=== PATIENT | female | born 1985 | race Caucasian/White ===

== ENCOUNTER 2016-06-28 10:25 | Outpatient (CLI) | payer BC, MEDICAID | END 2016-06-28 10:26 | DX: G40.409 Other generalized epilepsy and epileptic syndromes, not intractable, without status epilepticus (principal); Z79.899 Other long term (current) drug therapy ==

== ENCOUNTER 2016-10-25 06:38 | Outpatient (CLI) | payer OTHER, MEDICAID ==
[2016-10-25 12:47] LABS: BASOPHILS # (AUTO) 0.1 10^3/uL (0.0-0.1); BASOPHILS % (AUTO) 1.1 %; EOSINOPHILS # (AUTO) 0.4 10^3/uL (0.0-0.7); EOSINOPHILS % (AUTO) 6.1 %; HCT - HEMATOCRIT 36.8 % (37.0-47.0); HGB - HEMOGLOBIN 12.3 g/dL (12.0-16.0); LYMPHOCYTES # (AUTO) 1.2 10^3/uL (1.5-3.5); LYMPHOCYTES % (AUTO) 18.7 %; MEAN CORPUSCULAR HEMOGLOBIN 29.8 pg (27.0-31.0); MEAN CORPUSCULAR HGB CONC 33.5 g/dL (32.0-36.0); MEAN CORPUSCULAR VOLUME 88.9 fL (81.0-99.0); MEAN PLATELET VOLUME 9.5 fL (7.9-10.8); MONOCYTES # (AUTO) 0.4 10^3/uL (0.0-1.0); MONOCYTES % (AUTO) 5.8 %; NEUTROPHILS # (AUTO) 4.3 10^3/uL (1.5-6.6); NEUTROPHILS % (AUTO) 68.3 %; RED BLOOD COUNT 4.14 10^6/uL (4.20-5.40); RED CELL DISTRIBUTION WIDTH 13.2 % (12.0-15.0); UNCORRECTED WHITE BLOOD COUNT 6.3 x10^3/uL; WHITE BLOOD COUNT 6.3 x10^3/uL (4.8-10.8)
[2016-10-25 13:13] LABS: ALBUMIN/GLOBULIN RATIO 1.4 (1.0-2.2); BILIRUBIN,TOTAL 0.6 mg/dL (0.2-1.0); BUN - BLOOD UREA NITROGEN 14 mg/dL (6-20); CALCIUM 9.5 mg/dL (8.5-10.3); CARBON DIOXIDE - CO2 27 mmol/L (21-32); CHLORIDE 106 mmol/L (101-111); CREATININE 0.9 mg/dL (0.4-1.0); GFR - MDRD 74 (>89); GLUCOSE 78 mg/dL (70-100); POTASSIUM 4.2 mmol/L (3.5-5.0); SODIUM 139 mmol/L (135-145); TOTAL PROTEIN 7.6 g/dL (6.7-8.2)
== END 2016-10-25 06:39 | disposition home or self-care (01) ==
LOC: LAB.WCP 06:38
PROVIDERS: ATTEND Physician Assistant Medical
DX: Z79.899 Other long term (current) drug therapy (principal); G40.309 Generalized idiopathic epilepsy and epileptic syndromes, not intractable, without status epilepticus; E03.9 Hypothyroidism, unspecified
CPT/HCPCS: 36415; 80053; 80178; 84443; 85025

== ENCOUNTER 2016-12-01 09:47 | Outpatient (CLI) | payer OTHER, MEDICAID | END 2016-12-01 09:48 | disposition home or self-care (01) | LOC: LAB.WCP 09:47 | PROVIDERS: ATTEND Physician Assistant Medical | DX: G40.309 Generalized idiopathic epilepsy and epileptic syndromes, not intractable, without status epilepticus (principal); Z79.899 Other long term (current) drug therapy | CPT/HCPCS: 36415; 80175 ==

== ENCOUNTER 2017-04-26 14:36 | Outpatient (CLI) | payer OTHER, MEDICAID ==
--- NOTE | 2017-04-26 20:49 | MRI Report ---
EXAM: RIGHT FEMUR/THIGH MRI WITHOUT CONTRAST EXAM DATE: 04/26/2017 04:17 PM. CLINICAL HISTORY: Pain in right thigh. COMPARISON: None. TECHNIQUE: Multiplanar, multisequence T1-weighted and fluid-sensitive sequences of the femur/thigh wi thout contrast. Other: None. FINDINGS: Bones: No fractures or subluxations. No marrow edema. No bone lesions. Joint Spaces: Visualized portions of the hip and knee joints are unremarkable on these large field-of -view images. Tendons: The visualized hamstring origins are unremarkable. Musculature: No edema or fatty atrophy. Muscle bundles of the thigh are well developed and show no ev idence for fatty atrophy. No areas of abnormal increased T2 signal. The area of the patient's concern is marked with an MRI marker. This is the midportion of the hamstring musculature. Normal anatomy is noted. Other: The visualized sciatic and femoral nerves are unremarkable. The subcutaneous tissues are unrem arkable. IMPRESSION: No MRI abnormalities in the femur/thigh. [facility] MUSCULOSKELETAL RADIOLOGY SECTION Referring Provider Line: [phone] SITE ID: [id number]
== END 2017-04-26 14:37 | disposition home or self-care (01) ==
LOC: DI 14:36
PROVIDERS: ATTEND Orthopaedic Surgery
DX: M79.651 Pain in right thigh (principal)

== ENCOUNTER 2017-05-22 13:55 | Outpatient (CLI) | payer OTHER, MEDICAID ==
[2017-05-22 19:06] LABS: LITHIUM 0.56 mmol/L
[2017-05-22 19:58] LABS: ALBUMIN 4.9 g/dL (3.2-5.5); ALBUMIN/GLOBULIN RATIO 1.5 (1.0-2.2); ALKALINE PHOSPHATASE 40 IU/L (42-121); ALT ALANINE AMINOTRANSFERASE 16 IU/L (10-60); AST ASPARTATE AMINOTRANSFERASE 21 IU/L (10-42); BILIRUBIN,TOTAL 0.7 mg/dL (0.2-1.0); BUN - BLOOD UREA NITROGEN 10 mg/dL (6-20); CALCIUM 9.2 mg/dL (8.5-10.3); CARBON DIOXIDE - CO2 23 mmol/L (21-32); CHLORIDE 108 mmol/L (101-111); CREATININE 0.9 mg/dL (0.4-1.0); GFR - MDRD 74 (>89); SODIUM 138 mmol/L (135-145); TOTAL PROTEIN 8.2 g/dL (6.7-8.2)
[2017-05-22 19:59] LABS: GLUCOSE 55 mg/dL (70-100)
== END 2017-05-22 13:56 | disposition home or self-care (01) ==
LOC: LAB.WCP 13:55
PROVIDERS: ATTEND Physician Assistant Medical
DX: G40.309 Generalized idiopathic epilepsy and epileptic syndromes, not intractable, without status epilepticus (principal); E03.9 Hypothyroidism, unspecified; Z51.81 Encounter for therapeutic drug level monitoring; Z79.899 Other long term (current) drug therapy
CPT/HCPCS: 36415; 80053; 80175; 80178; 84443

== ENCOUNTER 2017-11-07 10:24 | Outpatient (CLI) | payer OTHER, MEDICAID ==
[2017-11-13 02:36] LABS: B2 GLYCOPROTEIN I IGA AB <9 SAU (< OR = 20); B2 GLYCOPROTEIN I IGG AB <9 SGU (< OR = 20); B2 GLYCOPROTEIN I IGM AB <9 SMU (< OR = 20); CARDIOLIPIN AB IGA <11 APL
== END 2017-11-07 10:25 | disposition home or self-care (01) ==
LOC: LAB 10:24
PROVIDERS: ATTEND Family Medicine
DX: Z82.49 Family history of ischemic heart disease and other diseases of the circulatory system (principal)
CPT/HCPCS: 36415; 81240; 81241; 81599; 85300; 85303; 85613; 85730; 86146; 86147

== ENCOUNTER 2018-01-01 09:40 | Outpatient (CLI) | payer OTHER, MEDICAID ==
[2018-01-01 12:08] LABS: BASOPHILS # (AUTO) 0.1 10^3/uL (0.0-0.1); BASOPHILS % (AUTO) 1.1 %; EOSINOPHILS # (AUTO) 0.3 10^3/uL (0.0-0.7); EOSINOPHILS % (AUTO) 3.9 %; HGB - HEMOGLOBIN 12.9 g/dL (12.0-16.0); LYMPHOCYTES # (AUTO) 1.2 10^3/uL (1.5-3.5); LYMPHOCYTES % (AUTO) 16.5 %; MEAN CORPUSCULAR HEMOGLOBIN 30.1 pg (27.0-31.0); MEAN CORPUSCULAR HGB CONC 34.1 g/dL (32.0-36.0); MEAN CORPUSCULAR VOLUME 88.2 fL (81.0-99.0); MEAN PLATELET VOLUME 9.1 fL (7.9-10.8); MONOCYTES # (AUTO) 0.4 10^3/uL (0.0-1.0); MONOCYTES % (AUTO) 5.9 %; NEUTROPHILS # (AUTO) 5.3 10^3/uL (1.5-6.6); NEUTROPHILS % (AUTO) 72.6 %; PLT - PLATELET COUNT 265 10^3/uL (130-450); RED CELL DISTRIBUTION WIDTH 13.2 % (12.0-15.0); WHITE BLOOD COUNT 7.3 x10^3/uL (4.8-10.8)
[2018-01-01 12:31] LABS: ALBUMIN 4.6 g/dL (3.2-5.5); ALBUMIN/GLOBULIN RATIO 1.4 (1.0-2.2); ALKALINE PHOSPHATASE 41 IU/L (42-121); ALT ALANINE AMINOTRANSFERASE 11 IU/L (10-60); AST ASPARTATE AMINOTRANSFERASE 16 IU/L (10-42); BILIRUBIN,TOTAL 0.8 mg/dL (0.2-1.0); BUN - BLOOD UREA NITROGEN 9 mg/dL (6-20); CALCIUM 9.4 mg/dL (8.5-10.3); CARBON DIOXIDE - CO2 24 mmol/L (21-32); CHLORIDE 108 mmol/L (101-111); GFR - MDRD 65 (>89); GLUCOSE 84 mg/dL (70-100); SODIUM 138 mmol/L (135-145); TOTAL PROTEIN 7.9 g/dL (6.7-8.2)
[2018-01-01 12:42] LABS: THYROID STIMULATING HORMONE 2.65 uIU/mL (0.34-5.60)
[2018-01-01 12:48] LABS: PROLACTIN 9.8 ng/mL
== END 2018-01-01 09:41 ==
LOC: LAB.WCP 09:40
PROVIDERS: ATTEND Family Medicine
DX: F31.9 Bipolar disorder, unspecified (principal); N64.4 Mastodynia; E03.9 Hypothyroidism, unspecified; G40.309 Generalized idiopathic epilepsy and epileptic syndromes, not intractable, without status epilepticus
CPT/HCPCS: 36415; 80053; 80175; 80178; 84146; 84443; 85025

== ENCOUNTER 2018-04-18 08:00 | Outpatient (CLI) | payer OTHER, MEDICAID ==
[2018-04-18 13:51] LABS: CHOL/HDL RATIO 2.8 (<4.4); CHOLESTEROL 167 mg/dL; GLUCOSE,FASTING 82 mg/dL (70-100); HDL CHOLESTEROL 59 mg/dL; LDL CHOLESTEROL,CALCULATED 99 mg/dL; LDL/HDL RATIO 1.7 (<4.4); VLDL CHOLESTEROL 9 mg/dL
[2018-04-18 13:54] LABS: T4 (THYROXINE) 8.8 ug/dL (6.09-12.23)
[2018-04-18 13:58] LABS: THYROID STIMULATING HORMONE 2.29 uIU/mL (0.34-5.60)
== END 2018-04-18 23:59 | disposition home or self-care (01) ==
LOC: LAB.WCP 08:00
PROVIDERS: ATTEND Registered Nurse
DX: Z00.00 Encounter for general adult medical examination without abnormal findings (principal)
CPT/HCPCS: 36415; 80061; 82947; 83721; 84436; 84443

== ENCOUNTER 2018-05-01 15:02 | Outpatient (CLI) | payer OTHER, MEDICAID ==
--- NOTE | 2018-05-02 14:04 | Ultrasound Report ---
Reason: THYROMEGALY,VAGINAL AGENESIS Procedure Date: 05/01/2018 Accession Number: [id number] / [id number] Procedure: US - Head or Neck Soft Tissue CPT Code: FULL RESULT: EXAM: THYROID ULTRASOUND EXAM DATE: 05/01/2018 03:16 PM. CLINICAL HISTORY: Thyromegaly, vaginal agenesis. COMPARISON: RIBS W/PA CHEST RT 09/04/2015 12:30 PM. TECHNIQUE: Real time sonographic imaging of the thyroid was performed by the fishing boat captain. Multiple quality control representative static images were saved for review. FINDINGS: THYROID GLAND: Right Lobe: 2.1 x 1.8 x 4.6 cm cm, volume 8.96 cc. Diffuse heterogeneous background echotexture without discrete mass/nodule. Right Lobe Nodules: None. Left Lobe: 2.2 x 1.6 x 4.6 cm cm, volume 8.35 cc. Diffuse heterogeneous background echotexture. Left Lobe Nodules: 5 mm oval nodule upper outer left thyroid with increased echotexture and shadowing favoring partially rim calcified nodule. Isthmus: 0.51 cm AP. Isthmic Nodules: None. LYMPH NODES: No adenopathy demonstrated in the central or lateral compartment. OTHER: None. IMPRESSION: 1. Diffuse heterogeneous enlargement of the thyroid gland of uncertain etiology. 2. Hyperechoic, likely partially rim calcified 5 mm nodule in the left thyroid lobe. Given pattern of calcification, this nodule is between intermediate and high suspicion pattern. As finding is less than a centimeter in size, recommend surveillance imaging in 6 months to assess stability. Management recommendations are based on 2015 [place] [employer] Management Guidelines for Adult Patients with Thyroid Nodules and Differentiated Thyroid Cancer. [facility]
== END 2018-05-01 15:03 | disposition home or self-care (01) ==
LOC: DI 15:02
PROVIDERS: ATTEND Registered Nurse
DX: E01.0 Iodine-deficiency related diffuse (endemic) goiter (principal); Q52.0 Congenital absence of vagina
CPT/HCPCS: 76536

== ENCOUNTER 2018-05-30 09:43 | Outpatient (CLI) | payer OTHER, MEDICAID ==
[2018-05-30] MEDS ORDERED: GADOBUTROL 7.5 MMOL/7.5 ML VIAL ONE (11:24)
[2018-05-30] MEDS ORDERED: GADOBUTROL 7.5 MMOL/7.5 ML VIAL IVP ONE (11:55)
--- NOTE | 2018-05-30 14:57 | MRI Report ---
Reason: VAGINAL AGENESIS Procedure Date: 05/30/2018 Accession Number: [id number] / [id number] Procedure: MRI - Pelvis W/WO CPT Code: FULL RESULT: EXAM: MR PELVIS WITH AND WITHOUT CONTRAST (MR FEMALE PELVIS) EXAM DATE: 05/30/2018 12:08 PM. CLINICAL HISTORY: VAGINAL AGENESIS. COMPARISON: None. TECHNIQUE: Multiplanar breath-hold T1, T2 obtained through the pelvis on an MR scanner. Images obtained before and after administration of 7.5 mL Gadavist intravenous contrast. FINDINGS: Reproductive Organs: Uterus: The uterus is anteverted and measures 7.1 x 3.2 x 4.3 cm with volume 51 cc. The endometrial stripe measures 2 mm. Normal 7 mm junctional zone thickness. There are no uterine masses. Vaginal canal appears collapsed. Right Ovary: The right ovary measures 4.6 x 3.6 x 2.5 cm with volume 22 cc. Right ovary contains a simple cyst measuring 3.2 x 3.4 x 2.0 cm. No thick septations or mural nodules. Left Ovary: The left ovary measures 2.8 x 1.6 x 2.6 cm with volume 6.1 cc. The left ovary appears normal. Bowel: The visualized portions of the small bowel, colon, and rectum appear normal. Bladder: The urinary bladder appears normal. Other: Small amount of physiologic free fluid in cul-de-sac. IMPRESSION: 1. A 3.4 cm simple right ovarian cyst. Ovaries are otherwise unremarkable. 2. Normal uterus and cervix. [facility]
== END 2018-05-30 09:44 | disposition home or self-care (01) ==
LOC: DI 09:43
PROVIDERS: ATTEND Registered Nurse
DX: Q52.0 Congenital absence of vagina (principal); N83.291 Other ovarian cyst, right side
CPT/HCPCS: 72197; A9585

== ENCOUNTER 2018-09-03 12:56 | Outpatient (CLI) | payer OTHER, MEDICAID ==
[2018-09-03 13:15] LABS: BASOPHILS # (AUTO) 0.1 10^3/uL (0.0-0.1); BASOPHILS % (AUTO) 1.2 %; EOSINOPHILS # (AUTO) 0.4 10^3/uL (0.0-0.7); EOSINOPHILS % (AUTO) 5.6 %; HGB - HEMOGLOBIN 13.3 g/dL (12.0-16.0); LYMPHOCYTES # (AUTO) 1.6 10^3/uL (1.5-3.5); LYMPHOCYTES % (AUTO) 20.4 %; MEAN CORPUSCULAR HEMOGLOBIN 29.1 pg (27.0-31.0); MEAN CORPUSCULAR HGB CONC 33.1 g/dL (32.0-36.0); MEAN PLATELET VOLUME 8.3 fL (7.9-10.8); MONOCYTES # (AUTO) 0.5 10^3/uL (0.0-1.0); MONOCYTES % (AUTO) 5.8 %; NEUTROPHILS # (AUTO) 5.3 10^3/uL (1.5-6.6); PLT - PLATELET COUNT 308 10^3/uL (130-450); RED BLOOD COUNT 4.56 10^6/uL (4.20-5.40); RED CELL DISTRIBUTION WIDTH 13.4 % (12.0-15.0)
[2018-09-03 13:32] LABS: ALBUMIN 4.6 g/dL (3.2-5.5); ALBUMIN/GLOBULIN RATIO 1.4 (1.0-2.2); BILIRUBIN,TOTAL 0.6 mg/dL (0.2-1.0); CALCIUM 9.5 mg/dL (8.5-10.3); CREATININE 0.9 mg/dL (0.4-1.0); TOTAL PROTEIN 7.9 g/dL (6.7-8.2)
== END 2018-09-03 12:57 | disposition home or self-care (01) ==
LOC: LAB 12:56
PROVIDERS: ATTEND Obstetrics & Gynecology
DX: Z01.812 Encounter for preprocedural laboratory examination (principal); N94.4 Primary dysmenorrhea; N92.5 Other specified irregular menstruation
CPT/HCPCS: 36415; 80053; 85025; 86850; 86900; 86901; 93005

== ENCOUNTER 2018-09-04 07:55 | Day surgery (SDC) | payer OTHER, MEDICAID ==
[2018-09-04] MEDS ORDERED: ceFAZolin 2 GM/50 ML 2 GM/50 ML BAG IV ONE (08:07)
[2018-09-04] MEDS ORDERED: LACTATED RINGERS 1,000 ML IV ONE ×3 (08:26→13:10)
--- NOTE | 2018-09-04 09:47 | ANESTHESIA ---
Pre-Anesthesia VS, & Labs - Diagnosis menorrhagia and dysmenorrhea - Procedure total laparoscopic hysterectomy Vital Signs: Temp Pulse Resp BP Pulse Ox 36.8 C 73 18 115/71 100 09/04/18 08:00 09/04/18 08:00 09/04/18 08:00 09/04/18 08:00 09/04/18 08:00 Height 5 ft 6 in Weight (kg) 65.1 kg Body Mass Index 21.1 - NPO >8 hours - Is Patient ?: Waiver signed - Lab Results Lab results reviewed: Yes Home Medications and Allergies Home Medications: Ambulatory Orders Cholecalciferol (Vitamin D3) [Vitamin D3] 2,000 unit PO DAILY 08/26/18 Naproxen Sodium [Aleve] 220 mg PO BID PRN 08/26/18 Levothyroxine [Synthroid] 75 mcg PO QDAC 03/16/13 [place] Carbonate [[place] Carbonate ER] 1,200 mg PO QPM 03/16/13 lamoTRIgine [Lamictal Xr] 150 mg PO DAILY 03/16/13 traZODone [Desyrel] 50 mg PO HS 03/16/13 Cholecalciferol (Vitamin D3) [Vitamin D3] 2,000 unit PO DAILY 08/26/18 Naproxen Sodium [Aleve] 220 mg PO BID PRN 08/26/18 Allergies/Adverse Reactions: Allergies Allergy/AdvReac Type Severity Reaction Status Date / Time Pertussis Vaccines Allergy severe Verified 08/26/18 14:16 diarrhea pseudoephedrine HCl * Allergy Dizziness Verified 08/26/18 14:16 [facility] Anes History & Medical History - Anesthetic History Anesthesia Complications: reports: Post-Operative Nausea/Vomiting - Medical History Cardiovascular: reports: None Pulmonary: reports: Asthma, Other Gastrointestinal: reports: None Urinary: reports: None Musculoskeletal: reports: Chronic back pain Endocrine/Autoimmune: reports: None Skin: reports: None Smoking Status: Never smoker - Surgical History Orthopedic: Other (foot surgery) Exam General: Alert Dental: WNL Mallampati classification: II Thyromental Distance: greater than 6 cm Plan Anesthesia Type: General Consent for Procedure(s) Verified and Reviewed: Yes Code Status: Attempt Resuscitation ASA classification: 2-Mild systemic disease Is this case an emergency?: No
[2018-09-04] MEDS ORDERED: BUPIVACAINE 0.25%-EPI 1:200000 PF 30 ML VIAL ONE (11:03)
[2018-09-04] MEDS ORDERED: METHYLENE BLUE 0.5% 50 MG/10 ML AMPULE ONE (11:03)
[2018-09-04 11:11] LABS: HCG,QUALITATIVE BLOOD NEGATIVE
[2018-09-04] MEDS ORDERED: BUPIVACAINE 0.25%-EPI 1:200000 PF 30 ML VIAL SUBQ ONE ×3 (12:17→12:23)
[2018-09-04] MEDS ORDERED: LORazepam 2 MG/ML VIAL IVP PRN (15:21)
[2018-09-04] MEDS ORDERED: HYDROmorphone 0.5 MG/0.5 ML SYRINGE IVP PRN (15:21)
--- NOTE | 2018-09-04 15:25 | OPERATIVE REPORT ---
Operative Report - General Procedure Date: 09/04/18 Planned Procedure: TLH BS possible Open. Pre-Op Diagnosis: Dysmenorrhea, Menorrhagia Procedure Performed: TLH BS, cysto Post Op Diagnosis: Same - Procedure Note Primary Surgeon: Orion Castro MD Anesthesia Provider: Jose Fenton CRNA Anesthesia Technique: General ET tube Pathology: Uterus with Tubes IV Fluids (mL): 1,200 Estimated Blood Loss (mL): 100 Urine Output (mL): 450 Complications: None
[2018-09-04] MEDS: ONDANSETRON 4 MG/2 ML VIAL IVP PRN ×2 (16:15→23:15)
[2018-09-04] MEDS ORDERED: ONDANSETRON 4 MG/2 ML VIAL ONE (16:20)
[2018-09-04] MEDS ORDERED: LORazepam 2 MG/ML VIAL ONE (16:29)
[2018-09-04] MEDS: oxyCODONE 5 MG TABLET PO PRN (17:28)
[2018-09-04] MEDS: ACETAMINOPHEN 500 MG TABLET PO SCH (18:27)
[2018-09-04] MEDS ORDERED: ALBUTEROL NEB 2.5 MG/3 ML INH PRN (18:41)
[2018-09-04] MEDS: DOCUSATE SODIUM 100 MG CAPSULE PO SCH (21:00)
[2018-09-04] MEDS ORDERED: lamoTRIgine 100 MG TABLET PO SCH (21:00)
[2018-09-04] MEDS ORDERED: traZODone 50 MG TABLET PO SCH (21:00)
[2018-09-04] MEDS ORDERED: LITHIUM ER 300 MG TABLET PO SCH (21:00)
--- NOTE | 2018-09-04 21:22 | OPERATIVE REPORT ---
DATE OF SERVICE: 09/04/2018 Physician: Orion Castro MD PREOPERATIVE DIAGNOSES 1. Menorrhagia. 2. Dysmenorrhea. POSTOPERATIVE DIAGNOSES 1. Menorrhagia. 2. Dysmenorrhea. PROCEDURE DONE: Total laparoscopic hysterectomy with bilateral salpingectomy and cystoscopy. SURGEON: Orion Castro MD ANESTHESIA: General via endotracheal tube with Jose Fenton CRNA. ESTIMATED BLOOD LOSS: 100 mL. IV FLUIDS: 1200 mL. URINE OUTPUT: 450 mL. FINDINGS: Upon entering the abdominal cavity, the pelvis was free of any adhesions or lesions. Tube s and ovaries appeared to be free of disease. The gallbladder as well as appendix looked normal. Va ginal vault was very stenotic. The hymenal ring was very tight, barely able to enter a single digit. Cervix appeared to be normal. DESCRIPTION OF PROCEDURE: Following adequate endotracheal anesthesia, patient was placed in dorsal l ithotomy position. She was placed in Michael stirrups. At this point, she was prepped and draped in t he usual fashion. The pelvic examination revealed a very small cervix, so for this reason, extra ins truments were obtained. A timeout was performed, in which concerns were voiced and addressed, and th e possibility of needing to proceed to open was reviewed. At this point, a small speculum was placed in the vagina. The cervix was visualized, grasped with a single-tooth tenaculum anteriorly. At this point, it was felt that a larger pediatric speculum could be used, and so one was. Upon assessing the diameter and the aperture of the hymenal ring, it was d ecided that placing a medium VCare could be done. This was done with some dexterity, and the VCare w as placed into the fornices of the vagina. At this point, the trading floor operator's gloves were changed, and following local anesthesia with 0.25% Marcaine with epinephrine in the subumbilical area, an incision with a #11 blade was utilized. A trocar was placed on a single pass, and the pelvis was inspected. There was no evidence of any injury at the si te of insertion. Both left and right lower quadrant incisions were placed, utilizing 0.25% Marcaine with epinephrine, #11 blade, and then 5 mm ports. At this point, utilizing LigaSure, the tubes were bilaterally cauterized and divided. This brought all the way to the cornua. Then, utilizing the Lig aSure on the left-hand side, the round ligament as well as utero-ovarian ligament were cauterized and transected. A division between the anterior and posterior leaf was utilized, and then the bladder f lap was developed over the lower uterine segment. The right-hand side was treated identically. The tube was grasped, the mesosalpinx was clamped, caut erized, and divided, utilizing the LigaSure, all the way to the cornua. Then, the utero-ovarian liga ment was doubly cauterized and transected, as well as the round ligament. The anterior leaf of the b road ligament was opened, and this was brought down to the bladder flap. The cup from the VCare was easily palpated. Then, the uterosacral ligaments were clamped, cauterized, and transected. At this point, a Harmonic scalpel was used to enter the vagina anteriorly. Care was taken to try to stay as high in the vagina as possible. The incision was carried along the groove of the VCare cup o n the left-hand side. There was difficulty with bleeding on the uterosacral ligament. This was luis lluvia with electrocautery from the LigaSure. Good hemostasis was obtained. Then, the remainder of the cervix was amputated from the apex of the vagina. The uterus was brought down into the vagina and c reated a good seal. At this point, the tubes were both removed, as they were in the wound from the a pex of the vagina. Following removal of the tubes, it was decided to utilize an Endo Stitch with 0 V-Loc suture. The [facility] lower quadrant incision was extended to receive a centimeter port, and this was done without diff iculty. The Endo Stitch was used to close the apex of the vagina. This was done without difficulty. At this point, there was noted to be a gap in the midline on the right-hand side, so additional sut ure of V-Loc was placed, starting in the midline, working to the right. Good closure was noted, at t his time. At this point, the pelvis was inspected. There was no evidence of any bleeding. The pelvis was irri gated. The ports were removed under direct visualization. A Clarence was utilized to close t he right lower quadrant incision, in that it was a 1 cm incision. This was done with 0 Vicryl. This was noted to have a good tight closure. The incisions were closed using 4-0 Monocryl. Following th is, a cystoscopy was performed, in which there was evidence of good urine flow from both ureters. The patient tolerated the procedure well and was taken to recovery in stable condition. Sponge and n eedle counts were correct. TD: 09/04/2018 15:45
[2018-09-04] MEDS ORDERED: SODIUM CHLORIDE FLUSH 0.9% 10 ML SYRINGE ONE (23:20)
[2018-09-05] MEDS: ACETAMINOPHEN 500 MG TABLET PO SCH ×2 (00:17→07:57)
[2018-09-05 07:31] VITALS: BP 108/74
[2018-09-05] MEDS: DOCUSATE SODIUM 100 MG CAPSULE PO SCH (07:57)
[2018-09-05] MEDS ORDERED: KETOROLAC 30 MG/ML VIAL IVP PRN (08:25)
[2018-09-05] MEDS ORDERED: ONDANSETRON ODT 4 MG TABLET TL PRN (08:26)
[2018-09-05] MEDS: oxyCODONE 5 MG TABLET PO PRN (08:26)
[2018-09-05] MEDS ORDERED: oxyCODONE 5 MG TABLET PO PRN (08:31)
--- NOTE | 2018-09-05 08:36 | PROVIDER PROGRESS NOTE ---
Subjective - General Procedure Date: 09/04/18 Post Op Days: 1 Procedure Performed: TLH BS Cysto - Review of Systems Wound/Incisions: positive: Healing well Gastrointestinal: positive: Nausea, Vomiting (4 timeslast PM) Objective - Patient Data Reviewed Vital Signs: Yes Vital Signs: Vital Signs x48h Temp Pulse Resp BP Pulse Ox 09/05/18 07:25 37.3 C 82 14 108/74 97 09/05/18 05:51 37.1 C 90 18 97 09/05/18 04:00 37.1 C 90 18 126/75 97 Weight: Weight 09/03/18 09/04/18 09/05/18 23:59 23:59 23:59 Weight (kg) 65.1 kg Intake & Output: Intake and Output Totals x24h 09/03/18 09/04/18 09/05/18 23:59 23:59 23:59 Intake Total 2750 2900 Output Total 800 Balance 1950 2900 - Lab Results Other Lab Results: Lab Results x24hrs 09/04/18 09/04/18 Range/Units 16:50 10:46 Serum HCG, Qual NEGATIVE Nasal Screen MRSA (PCR) NEGATIVE (NEGATIVE) - Current Medications Current Medications: Current Medications Generic Name Dose Route Start Last Admin Trade Name Freq PRN Reason Stop Dose Admin Acetaminophen 1,000 mg 09/04/18 16:00 09/05/18 07:57 Tylenol PO 1,000 mg Q8H LUZ Administration Docusate Sodium 100 mg 09/04/18 21:00 09/05/18 07:57 Colace 100mg Capsule PO 100 mg BID LUZ Administration Lamotrigine 150 mg 09/04/18 21:00 09/04/18 21:00 Lamictal PO 150 mg QPM LUZ Administration [place] Carbonate 1,200 mg 09/04/18 21:00 09/04/18 21:18 Lithobid PO 1,200 mg QPM LUZ Administration Ondansetron HCl 4 mg 09/04/18 15:21 09/04/18 16:15 Zofran Inj IVP 4 mg Q6HR PRN Administration Nausea / Vomiting Oxycodone HCl 10 mg 09/04/18 15:21 09/05/18 08:26 Roxicodone PO 10 mg Q4HR PRN Administration PAIN Trazodone HCl 50 mg 09/04/18 21:00 09/04/18 21:00 Desyrel PO 50 mg QPM LUZ Administration - Physical Exam Wound/Incisions: positive: Healing well General Appearance: positive: Mild distress (Pt notes Pain 3/10 when not moving. with motion very sore) Cardiovascular: positive: Regular rate & rhythm, No murmur, No gallop Abdomen: positive: Nml bowel sounds, No distention, Tenderness (tender over the lower pelvis) Extremities: negative: Calf tenderness, Peggy's sign/cords Impression/Plan - Problem List Problem List: Patient did'nt qet any thing for pain last PM except for tylenol. 4 episode of vomiting. Low grade temp suspect atalectisis. start Pain medication CBC
[2018-09-05 08:49] LABS: BASOPHILS # (AUTO) 0.1 10^3/uL (0.0-0.1); BASOPHILS % (AUTO) 0.8 %; EOSINOPHILS # (AUTO) 0.1 10^3/uL (0.0-0.7); EOSINOPHILS % (AUTO) 0.9 %; HGB - HEMOGLOBIN 11.8 g/dL (12.0-16.0); LYMPHOCYTES % (AUTO) 7.9 %; MEAN CORPUSCULAR HEMOGLOBIN 29.2 pg (27.0-31.0); MEAN CORPUSCULAR HGB CONC 32.8 g/dL (32.0-36.0); MEAN PLATELET VOLUME 8.3 fL (7.9-10.8); MONOCYTES # (AUTO) 0.7 10^3/uL (0.0-1.0); MONOCYTES % (AUTO) 6.1 %; NEUTROPHILS # (AUTO) 10.4 10^3/uL (1.5-6.6); NEUTROPHILS % (AUTO) 84.3 %; PLT - PLATELET COUNT 257 10^3/uL (130-450); RED BLOOD COUNT 4.05 10^6/uL (4.20-5.40); RED CELL DISTRIBUTION WIDTH 13.2 % (12.0-15.0); WHITE BLOOD COUNT 12.3 x10^3/uL (4.8-10.8)
--- NOTE | 2018-09-05 12:30 | PROVIDER PROGRESS NOTE ---
Subjective - General Procedure Date: 09/04/18 Post Op Days: 1 Procedure Performed: TL BS Cysto - Review of Systems Wound/Incisions: positive: Healing well General: positive: No symptoms (Pain 2/10 moving easly.) Gastrointestinal: positive: Nausea, Vomiting (4 timeslast PM) Objective - Patient Data Vital Signs: Vital Signs x48h Temp Pulse Resp BP Pulse Ox 09/05/18 09:26 98.7 C H 09/05/18 07:25 37.3 C 82 14 108/74 97 09/05/18 05:51 37.1 C 90 18 97 Weight: Weight 09/03/18 09/04/18 09/05/18 23:59 23:59 23:59 Weight (kg) 65.1 kg Intake & Output: Intake and Output Totals x24h 09/03/18 09/04/18 09/05/18 23:59 23:59 23:59 Intake Total 2750 3250 Output Total 800 Balance 1950 3250 - Lab Results Lab Results: 09/05/18 08:46 Other Lab Results: Lab Results x24hrs 09/05/18 09/04/18 Range/Units 08:46 16:50 WBC 12.3 H (4.8-10.8) x10^3/uL RBC 4.05 L (4.20-5.40) 10^6/uL Hgb 11.8 L (12.0-16.0) g/dL Hct 36.1 L (37.0-47.0) % MCV 89.0 (81.0-99.0) fL MCH 29.2 (27.0-31.0) pg MCHC 32.8 (32.0-36.0) g/dL RDW 13.2 (12.0-15.0) % Plt Count 257 (130-450) 10^3/uL MPV 8.3 (7.9-10.8) fL Neut # (Auto) 10.4 H (1.5-6.6) 10^3/uL Lymph # (Auto) 1.0 L (1.5-3.5) 10^3/uL [place] # (Auto) 0.7 (0.0-1.0) 10^3/uL Eos # (Auto) 0.1 (0.0-0.7) 10^3/uL Baso # (Auto) 0.1 (0.0-0.1) 10^3/uL Absolute Nucleated RBC 0.00 x10^3/uL Nucleated RBC % 0.0 /100WBC Nasal Screen MRSA (PCR) NEGATIVE (NEGATIVE) - Current Medications Current Medications: Current Medications Generic Name Dose Route Start Last Admin Trade Name Freq PRN Reason Stop Dose Admin Acetaminophen 1,000 mg 09/04/18 16:00 09/05/18 07:57 Tylenol PO 1,000 mg Q8H LUZ Administration Docusate Sodium 100 mg 09/04/18 21:00 09/05/18 07:57 Colace 100mg Capsule PO 100 mg BID LUZ Administration Lamotrigine 150 mg 09/04/18 21:00 09/04/18 21:00 Lamictal PO 150 mg QPM LUZ Administration [place] Carbonate 1,200 mg 09/04/18 21:00 09/04/18 21:18 Lithobid PO 1,200 mg QPM LUZ Administration Ondansetron HCl 4 mg 09/04/18 15:21 09/04/18 16:15 Zofran Inj IVP 4 mg Q6HR PRN Administration Nausea / Vomiting Oxycodone HCl 5 mg 09/05/18 08:31 09/05/18 12:16 Roxicodone PO 5 mg Q4HR PRN Administration PAIN Trazodone HCl 50 mg 09/04/18 21:00 09/04/18 21:00 Desyrel PO 50 mg QPM LUZ Administration Impression/Plan - Problem List Problem List: Pt is drastically improved. moving well Send home
== END 2018-09-05 12:50 | disposition home or self-care (01) ==
LOC: SDS 07:55 → ICU 16:03 → SDS 09-05 12:50
PROVIDERS: ATTEND Obstetrics & Gynecology
PROC: 0UT74ZZ Resection of Bilateral Fallopian Tubes, Percutaneous Endoscopic Approach (ICD-10-PCS; 2018-09-04)
PROC: 0TJB8ZZ Inspection of Bladder, Via Natural or Artificial Opening Endoscopic (ICD-10-PCS; 2018-09-04)
PROC: 0UT94ZZ Resection of Uterus, Percutaneous Endoscopic Approach (ICD-10-PCS; principal; 2018-09-04 09:15)
DX: N94.4 Primary dysmenorrhea (principal); N92.0 Excessive and frequent menstruation with regular cycle; E03.9 Hypothyroidism, unspecified; F84.5 Asperger's syndrome; F31.9 Bipolar disorder, unspecified; G47.00 Insomnia, unspecified; J45.909 Unspecified asthma, uncomplicated; G89.29 Other chronic pain; M54.9 Dorsalgia, unspecified
CPT/HCPCS: 36415; 58571; 84703; 85025; 87150; A9270; J0690; J2060; J7120; 81025

== ENCOUNTER 2019-12-24 09:04 | Outpatient (CLI) | payer MEDICAID, OTHER ==
[2019-12-24 11:52] LABS: BASOPHILS # (AUTO) 0.1 10^3/uL (0.0-0.1); BASOPHILS % (AUTO) 0.9 %; EOSINOPHILS # (AUTO) 0.4 10^3/uL (0.0-0.7); EOSINOPHILS % (AUTO) 5.8 %; HGB - HEMOGLOBIN 12.5 g/dL (12.0-16.0); LYMPHOCYTES # (AUTO) 1.2 10^3/uL (1.5-3.5); LYMPHOCYTES % (AUTO) 18.3 %; MEAN CORPUSCULAR HEMOGLOBIN 29.1 pg (27.0-31.0); MEAN CORPUSCULAR HGB CONC 31.2 g/dL (32.0-36.0); MEAN CORPUSCULAR VOLUME 93.3 fL (81.0-99.0); MEAN PLATELET VOLUME 11.2 fL (7.9-10.8); MONOCYTES # (AUTO) 0.4 10^3/uL (0.0-1.0); MONOCYTES % (AUTO) 5.5 %; NEUTROPHILS # (AUTO) 4.7 10^3/uL (1.5-6.6); NEUTROPHILS % (AUTO) 69.4 %; PLT - PLATELET COUNT 289 10^3/uL (130-450); RED CELL DISTRIBUTION WIDTH 12.5 % (12.0-15.0); WHITE BLOOD COUNT 6.7 x10^3/uL (4.8-10.8)
[2019-12-24 12:31] LABS: ALBUMIN 4.8 g/dL (3.2-5.5); ALBUMIN/GLOBULIN RATIO 1.6 (1.0-2.2); BILIRUBIN,TOTAL 0.5 mg/dL (0.2-1.0); CALCIUM 9.6 mg/dL (8.5-10.3); CREATININE 0.9 mg/dL (0.4-1.0); TOTAL PROTEIN 7.8 g/dL (6.7-8.2)
== END 2019-12-24 23:59 | disposition home or self-care (01) ==
LOC: LAB.WCP 09:04
PROVIDERS: ATTEND Family Medicine
DX: G40.309 Generalized idiopathic epilepsy and epileptic syndromes, not intractable, without status epilepticus (principal); F31.9 Bipolar disorder, unspecified
CPT/HCPCS: 36415; 80053; 80178; 84443; 85025

== ENCOUNTER 2020-06-14 08:00 | Outpatient (CLI) | payer BC, OTHER ==
[2020-06-14 12:31] LABS: ALBUMIN 4.7 g/dL (3.2-5.5); ALBUMIN/GLOBULIN RATIO 1.2 (1.0-2.2); BILIRUBIN,TOTAL 0.8 mg/dL (0.2-1.0); CALCIUM 9.6 mg/dL (8.5-10.3); TOTAL PROTEIN 8.5 g/dL (6.7-8.2)
[2020-06-14 12:38] LABS: LITHIUM 0.87 mmol/L
[2020-06-14 12:47] LABS: THYROID STIMULATING HORMONE 6.77 uIU/mL (0.34-5.60)
[2020-06-14 12:49] LABS: FREE T4 (FREE THYROXINE) 0.77 ng/dL (0.58-1.64)
== END 2020-06-14 23:59 | disposition home or self-care (01) ==
LOC: LAB.WCP 08:00
PROVIDERS: ATTEND Family Medicine
DX: F31.9 Bipolar disorder, unspecified (principal)
CPT/HCPCS: 36415; 80053; 80178; 84439; 84443

== ENCOUNTER 2020-08-06 08:38 | Outpatient (CLI) | payer BC, OTHER ==
--- NOTE | 2020-08-06 09:37 | XRAY Report ---
PROCEDURE: Chest 2 View X-Ray INDICATIONS: ACUTE URI TECHNIQUE: 2 view(s) of the chest. COMPARISON: None. FINDINGS: Surgical changes and devices: None. Lungs and pleura: No pleural effusions or pneumothorax. Lungs are clear. Mediastinum: Mediastinal contours are normal. Heart size is normal. Bones and chest wall: No suspicious bony abnormalities. Soft tissues appear unremarkable. IMPRESSION: Normal for age, source of current symptoms is not seen. Reviewed by: Lamonte Hurley MD on 08/06/2020 9:36 AM PDT Approved by: Lamonte Hurley MD on 08/06/2020 9:36 AM PDT Station ID: [id number]
== END 2020-08-06 23:59 | disposition home or self-care (01) ==
LOC: DI.N 08:38
PROVIDERS: ATTEND Nurse Practitioner
DX: J06.9 Acute upper respiratory infection, unspecified (principal); Z20.822 Contact with and (suspected) exposure to COVID-19

== ENCOUNTER 2020-10-05 08:00 | Outpatient (CLI) | payer BC, OTHER ==
[2020-10-05 18:15] LABS: CREATININE 1.1 mg/dL (0.4-1.0); POTASSIUM 3.9 mmol/L (3.5-5.0)
[2020-10-05 18:26] LABS: THYROID STIMULATING HORMONE 1.91 uIU/mL (0.34-5.60)
[2020-10-09 09:06] LABS: LACOSAMIDE 1.3 mcg/mL
[2020-10-10 11:06] LABS: LAMOTRIGINE 8.4 mcg/mL (4.0-18.0)
== END 2020-10-05 23:59 | disposition home or self-care (01) ==
LOC: LAB.WCP 08:00
PROVIDERS: ATTEND Psychiatry & Neurology Neurology
DX: G40.209 Localization-related (focal) (partial) symptomatic epilepsy and epileptic syndromes with complex partial seizures, not intractable, without status epilepticus (principal); F31.9 Bipolar disorder, unspecified
CPT/HCPCS: 36415; 80048; 80175; 80235; 84443

== ENCOUNTER 2020-10-26 08:00 | Outpatient (CLI) | payer BC, OTHER ==
[2020-10-26 12:08] LABS: BASOPHILS % (AUTO) 0.9 %; EOSINOPHILS % (AUTO) 11.6 %; HCT - HEMATOCRIT 42.6 % (37.0-47.0); HGB - HEMOGLOBIN 13.3 g/dL (12.0-16.0); LYMPHOCYTES % (AUTO) 11.2 %; MEAN CORPUSCULAR HEMOGLOBIN 29.2 pg (27.0-31.0); MEAN CORPUSCULAR HGB CONC 31.2 g/dL (32.0-36.0); MEAN CORPUSCULAR VOLUME 93.6 fL (81.0-99.0); MEAN PLATELET VOLUME 10.8 fL (7.9-10.8); MONOCYTES % (AUTO) 4.3 %; NEUTROPHILS % (AUTO) 71.8 %; PLT - PLATELET COUNT 359 10^3/uL (130-450); RED BLOOD COUNT 4.55 10^6/uL (4.20-5.40); RED CELL DISTRIBUTION WIDTH 12.4 % (12.0-15.0); WHITE BLOOD COUNT 8.9 x10^3/uL (4.8-10.8)
[2020-10-26 12:14] LABS: SLIDE REVIEW? Indicated
[2020-10-26 12:34] LABS: ALBUMIN 4.9 g/dL (3.2-5.5); ALBUMIN/GLOBULIN RATIO 1.5 (1.0-2.2); BILIRUBIN,TOTAL 0.3 mg/dL (0.2-1.0); CALCIUM 9.8 mg/dL (8.5-10.3); CREATININE 1.1 mg/dL (0.4-1.0); POTASSIUM 4.2 mmol/L (3.5-5.0); TOTAL PROTEIN 8.1 g/dL (6.7-8.2)
[2020-10-26 12:37] LABS: THYROID STIMULATING HORMONE 2.12 uIU/mL (0.34-5.60)
[2020-10-26 12:52] LABS: LITHIUM 0.87 mmol/L
[2020-10-26 12:54] LABS: ABNORMAL LYMPHS % (MANUAL) 0 %
[2020-10-26 13:50] LABS: BAND NEUTROPHILS % (MANUAL) 1 %; EOSINOPHILS # (MANUAL) 0.6 10^3/uL (0-0.7); LYMPHOCYTES # (MANUAL) 0.8 10^3/uL (1.5-3.5); LYMPHOCYTES % (MANUAL) 9 %; MONOCYTES # (MANUAL) 0.2 10^3/uL (0.0-1.0); NEUTROPHILS # (MANUAL) 7.3 10^3/uL (1.5-6.6); PLATELET ESTIMATE, MANUAL NORMAL (130-450,000) (NORMAL); PLATELET MORPHOLOGY NORMAL APPEARANCE (NORMAL); RBC MORPHOLOGY (MULTIPLE) NORMAL APPEARANCE (NORMAL); WBC MORPHOLOGY (MULTIPLE) NORMAL APPEARANCE (NORMAL)
[2020-10-26 13:51] LABS: DIFFERENTIAL COMMENT MANUAL DIFFERENTIAL
== END 2020-10-26 23:59 | disposition home or self-care (01) ==
LOC: LAB.WCP 08:00
PROVIDERS: ATTEND Family Medicine
DX: Z79.899 Other long term (current) drug therapy (principal)
CPT/HCPCS: 36415; 80053; 80178; 84443; 85025

== ENCOUNTER 2020-12-24 07:49 | Outpatient (CLI) | payer BC, OTHER ==
--- NOTE | 2020-12-24 08:52 | XRAY Report ---
PROCEDURE: Knee 4 View RT INDICATIONS: KNEE PAIN, RIGHT TECHNIQUE: 4 views of the right knee(s) were acquired. COMPARISON: Femur radiographs dated 04/18/2017. FINDINGS: No acute fracture. Prominent exostosis involving the medial tibial metaphysis measuring approximately 1.1 x 1.0 cm as measured on coronal images. Scattered subchondral sclerosis and spurring. No defini te joint effusion. IMPRESSION: Minimal degenerative changes. Prominent exostosis arising from the medial aspect of the tibial metaph ysis, which was likely present on the prior study from 04/18/2017. If the patient's pain or other symp toms persist, consider further evaluation with MRI. Reviewed by: Ramon Gutierrez MD on 12/24/2020 8:51 AM PDT Approved by: Ramon Gutierrez MD on 12/24/2020 8:51 AM PDT Station ID: [id number]
== END 2020-12-24 07:50 | disposition home or self-care (01) ==
LOC: DI.N 07:49
PROVIDERS: ATTEND Family Medicine
DX: M17.11 Unilateral primary osteoarthritis, right knee (principal); M89.9 Disorder of bone, unspecified

== ENCOUNTER 2021-02-02 08:00 | Outpatient (CLI) | payer BC, OTHER ==
[2021-02-05 09:31] LABS: LACOSAMIDE 2.2 mcg/mL
== END 2021-02-02 23:59 | disposition home or self-care (01) ==
LOC: LAB.WCP 08:00
PROVIDERS: ATTEND Psychiatry & Neurology Neurology
DX: Z51.81 Encounter for therapeutic drug level monitoring (principal); Z79.899 Other long term (current) drug therapy
CPT/HCPCS: 80175; 80235

== ENCOUNTER 2021-04-12 08:00 | Outpatient (CLI) | payer BC, OTHER, MEDICAID ==
[2021-04-12 12:14] LABS: CALCIUM 9.6 mg/dL (8.5-10.3); POTASSIUM 4.1 mmol/L (3.5-5.0)
[2021-04-12 12:18] LABS: LITHIUM 0.82 mmol/L
== END 2021-04-12 23:59 ==
LOC: LAB.WCP 08:00
PROVIDERS: ATTEND Psychiatry & Neurology Psychiatry
DX: F41.9 Anxiety disorder, unspecified (principal); F31.9 Bipolar disorder, unspecified; Z79.899 Other long term (current) drug therapy
CPT/HCPCS: 36415; 80048; 80178

== ENCOUNTER 2021-04-26 09:59 | Outpatient (CLI) | payer BC, OTHER, MEDICAID | END 2021-04-26 10:00 | disposition home or self-care (01) | LOC: RT 09:59 | PROVIDERS: ATTEND Psychiatry & Neurology Psychiatry | DX: F41.9 Anxiety disorder, unspecified (principal); F31.9 Bipolar disorder, unspecified; Z79.899 Other long term (current) drug therapy | CPT/HCPCS: 93005 ==

== ENCOUNTER 2021-07-19 08:07 | Outpatient (CLI) | payer BC, OTHER, MEDICAID ==
[2021-07-19 12:22] LABS: ALBUMIN 4.8 g/dL (3.2-5.5); ALBUMIN/GLOBULIN RATIO 1.5 (1.0-2.2); BILIRUBIN,TOTAL 0.6 mg/dL (0.2-1.0); CALCIUM 9.8 mg/dL (8.5-10.3); CREATININE 1.1 mg/dL (0.4-1.0); POTASSIUM 4.3 mmol/L (3.5-5.0); TOTAL PROTEIN 8.1 g/dL (6.7-8.2)
[2021-07-19 12:33] LABS: THYROID STIMULATING HORMONE 1.69 uIU/mL (0.34-5.60)
[2021-07-19 12:42] LABS: BASOPHILS # (AUTO) 0.1 10^3/uL (0.0-0.1); BASOPHILS % (AUTO) 1.2 %; EOSINOPHILS # (AUTO) 0.4 10^3/uL (0.0-0.7); EOSINOPHILS % (AUTO) 6.6 %; HCT - HEMATOCRIT 42.3 % (37.0-47.0); HGB - HEMOGLOBIN 13.9 g/dL (12.0-16.0); LYMPHOCYTES # (AUTO) 1.1 10^3/uL (1.5-3.5); LYMPHOCYTES % (AUTO) 16.6 %; MEAN CORPUSCULAR HEMOGLOBIN 30.3 pg (27.0-31.0); MEAN CORPUSCULAR HGB CONC 32.9 g/dL (32.0-36.0); MEAN CORPUSCULAR VOLUME 92.2 fL (81.0-99.0); MEAN PLATELET VOLUME 11.2 fL (7.9-10.8); MONOCYTES # (AUTO) 0.4 10^3/uL (0.0-1.0); MONOCYTES % (AUTO) 5.4 %; NEUTROPHILS # (AUTO) 4.7 10^3/uL (1.5-6.6); NEUTROPHILS % (AUTO) 69.9 %; PLT - PLATELET COUNT 292 10^3/uL (130-450); RED BLOOD COUNT 4.59 10^6/uL (4.20-5.40); RED CELL DISTRIBUTION WIDTH 12.4 % (12.0-15.0); WHITE BLOOD COUNT 6.7 x10^3/uL (4.8-10.8)
[2021-07-19 13:25] LABS: LITHIUM 0.81 mmol/L
== END 2021-07-19 08:08 | disposition home or self-care (01) ==
LOC: LAB.N 08:07
PROVIDERS: ATTEND Family Medicine
DX: G40.309 Generalized idiopathic epilepsy and epileptic syndromes, not intractable, without status epilepticus (principal)
CPT/HCPCS: 36415; 80053; 80178; 84443; 85025

== ENCOUNTER 2021-08-08 16:11 | Outpatient (CLI) | payer OTHER, MEDICAID ==
--- NOTE | 2021-08-09 11:14 | Ultrasound Report ---
PROCEDURE: Head or Neck Soft Tissue INDICATIONS: THYROID NODULE TECHNIQUE: Real-time scanning was performed of the thyroid gland, with image documentation. COMPARISON: 04/21/2018. FINDINGS: Right: Thyroid lobe measures 4.5 x 1.9 x 2.1 cm, and is homogeneous in echotexture. Left: Thyroid lobe measures 4.7 x 1.8 x 1.6 cm, and is homogenous in echotexture. Isthmus: 5.0 mm thick. Nodule number: One Location: Left upper outer Size: 0.5 x 0.4 x 0.6 cm. Composition: Solid Echogenicity: Hyperechoic Shape: wider than tall. Margins: Irregular Echogenic foci: Macrocalcifications Total points: 6 ACR TI-RADS category: Moderately suspicious Nodule number: Two Location: Left lower Size: 0.5 cm. Composition: Solid Echogenicity: Isoechoic Shape: wider than tall. Margins: Smooth Echogenic foci: None Total points: 3 ACR TI-RADS category: Mildly suspicious IMPRESSION: Thyroid nodules as described above. Nodule #1 is moderately suspicious and nodule #2 is mildly suspic ious. Recommend follow-up imaging based on criteria outlined below. ACR TI-RADS definitions and recommendations: TI-RADS 1 (benign): 0 points. FNA not needed. TI-RADS 2 (not suspicious): 2 points. FNA not needed. TI-RADS 3 (mildly suspicious): 3 points. "FNA if 2.5 cm or larger, follow up if 1.5 cm or larger (at 1, 3, and 5 years). TI-RADS 4 (moderately suspicious): 4-6 points. "FNA if 1.5 cm or larger, follow up if 1 cm or larger (at 1, 2, 3, and 5 years). TI-RADS 5 (highly suspicious): 7 points or more. "FNA if 1 cm or larger, follow up if 0.5 cm or larger (every year for 5 years). Reviewed by: Anastasia Carey MD, PhD on 08/09/2021 11:13 AM PDT Approved by: Anastasia Carey MD, PhD on 08/09/2021 11:13 AM PDT Station ID: [id number]
== END 2021-08-08 16:12 | disposition home or self-care (01) ==
LOC: DI 16:11
PROVIDERS: ATTEND Family Medicine
DX: E04.2 Nontoxic multinodular goiter (principal); Q52.4 Other congenital malformations of vagina